=== PATIENT | female | born 1940 | race Caucasian/White ===

== ENCOUNTER 2017-08-30 18:24 | Emergency (ER) | payer MEDICARE, MEDICAID ==
[2017-08-30 18:24] VITALS: BMI 31.6
[2017-08-30 18:37] VITALS: RESP 18; TEMP 97.7
--- NOTE | 2017-08-30 18:46 | ED PDOC ---
Arrival/HPI - General Chief Complaint: Headache Time Seen by Provider: 08/30/17 18:31 Historian: Patient - History of Present Illness Narrative History of Present Illness (Text): 08/30/17 18:43 A 77 year old male, whose past medical history includes hypertension and diabetes (takes tablets, not insulin; compliant with meds), presents to the emergency department complaining of right back-side head pain. Patient reports pain has occurred many times this past year. Notes pain is still that same as always and it began at approximately 11:00 today, then later again at 15:00. Notes sometimes experiences blurry vision and shortness of breath (only when ambulating up stairs). Patient denies any chest pain, ear pain/discharge, dizziness, or any other complaints. Has no history of smoking/EtOH abuse. No PMD Past Medical History - Provider Review Nursing Documentation Reviewed: Yes - Infectious Disease Hx of Infectious Diseases: None - Reproductive Menopause: Yes - Cardiac Hx Hypertension: Yes - Renal Hx Renal Disorder: No - Endocrine/Metabolic Hx Endocrine Disorders: No - Musculoskeletal/Rheumatological Hx Arthritis: Yes Other/Comment: knee pain - Genitourinary/Gynecological Hx Genitourinary Disorders: No - Psychiatric Hx Depression: No Hx Emotional Abuse: No Hx Physical Abuse: No Hx Substance Use: No - Past Surgical History Past Surgical History: No Previous - Anesthesia Hx Anesthesia: No - Suicidal Assessment Feels Threatened In Home Enviroment: No Family/Social History - Physician Review Nursing Documentation Reviewed: Yes Family/Social History: No Known Family HX Smoking Status: Unknown If Ever Smoked Hx Alcohol Use: No Hx Substance Use: No Allergies/Home Meds Allergies/Adverse Reactions: Allergies No Known Allergies Allergy (Verified 12/17/12 14:12) Home Medications: Home Meds Medication Instructions Recorded Confirmed Amlodipine Besylate [Norvasc] 10 mg PO DAILY 12/17/12 12/17/12 Aspirin [Aspir 81] 81 mg PO DAILY 12/17/12 12/17/12 Atorvastatin [Lipitor] 20 mg PO DAILY 12/17/12 12/17/12 Metoprolol Tartrate 100 mg PO DAILY 12/17/12 12/17/12 Naproxen [Naprosyn] 500 mg PO 12/17/12 12/17/12 Review of Systems - Physician Review All systems were reviewed & negative as marked: Yes - Review of Systems ENT: absent: Other (no ear pain; pain to right back-side of head) Cardiovascular: absent: Chest Pain Physical Exam Vital Signs Reviewed: Yes Vital Signs Temp Pulse Resp BP Pulse Ox 08/30/17 18:29 97.7 F 66 18 161/70 H 97 Temperature: Afebrile Blood Pressure: Hypertensive Pulse: Regular Respiratory Rate: Normal Appearance: Positive for: Well-Appearing Pain Distress: None Mental Status: Positive for: Alert and Oriented X 3 - Systems Exam Head: Present: Other (right mastoid tenderness) Respiratory/Chest: Present: Clear to Auscultation, Good Air Exchange. No: Respiratory Distress, Accessory Muscle Use Cardiovascular: Present: Regular Rate and Rhythm, Normal S1, S2. No: Murmurs Abdomen: No: Tenderness, Distention, Peritoneal Signs Upper Extremity: Present: Normal Inspection. No: Cyanosis, Edema Lower Extremity: Present: Normal Inspection. No: Edema Neurological: Present: GCS=15, CN II-XII Intact, Speech Normal Skin: Present: Warm, Dry, Normal Color. No: Rashes Psychiatric: Present: Alert, Oriented x 3, Normal Insight, Normal Concentration Medical Decision Making ED Course and Treatment: 08/30/17 18:49 Impression: 77 year old female with right back-side head pain. No acute findings on physical examination except tenderness to right mastoid. Differential Diagnosis included but are not limited to: Mastoiditis Plan: -- EKG -- Brain CT -- Chest X-ray -- Labs -- Reassess and disposition Progress Notes: 08/30/2017 21:[address] FINDINGS: Brain: [id number] atrophy. No intracranial hemorrhage. No mass. Few scattered foci of decreased attenuation within periventricular/subcortical white matter. No definite edema. Ventricles: No hydrocephalus. Bones/joints: No acute fracture. Soft tissues: Unremarkable. Vasculature: Atherosclerotic disease of intracranial arteries. Sinuses: Scattered mild mucosal thickening of ethmoid sinuses. Mastoid air cells: No mastoid effusion. Orbits: Unremarkable as visualized. IMPRESSION: 1. Nonspecific white matter changes. Acute infarction may be CT occult within first 24 hours. If a focal deficit persists, consider followup CT or MRI for further evaluation. Dictator: David Bacon MD 08/30/17 21:25 Chest X-ray as interpreted by me, shows no acute disease, no infiltrates. On re-evaluation, patient feels better and is in no acute distress. I have discussed the results and plan with the patient, who expresses understanding. Patient in agreement with plan to be discharged home. Patient is stable for discharge. Patient was instructed to follow up with physician or return if symptoms worsen or new concerning symptoms arise. - Lab Interpretations Lab Results: 08/30/17 18:40 08/30/17 18:40 Lab Results 08/30/17 18:40: Sodium 140, Potassium 4.9, Chloride 109 H, Carbon Dioxide 15 L, Anion Gap 21 H, BUN 58 H, Creatinine 2.1 H, Est GFR ( Amer) 27, Est GFR ( Non-Af Amer) 23, Random Glucose 187 H, Calcium 8.9, Total Bilirubin 0.6, AST 30 , ALT 33, Alkaline Phosphatase 67, Troponin I < 0.01, Total Protein 7.5, Albumin 4.3, Globulin 3.1, Albumin/Globulin Ratio 1.4 08/30/17 18:40: PT 10.2, INR 0.90 L, APTT 27.1 08/30/17 18:40: WBC 9.6, RBC 4.90, Hgb 12.5, Hct 37.6, MCV 76.7 L, MCH 25.5, MCHC 33.2, RDW 16.8 H, Plt Count 515 H, MPV 10.2, Gran % 77.7 H, Lymph % (Auto) 17.0 L, [place] % (Auto) 3.5, Eos % (Auto) 1.4 L, Baso % (Auto) 0.4, Gran # 7.45 H , Lymph # (Auto) 1.6, [place] # (Auto) 0.3, Eos # (Auto) 0.1, Baso # (Auto) 0.04 I have reviewed the lab results: Yes - RAD Interpretation Radiology Orders: 08/30/17 18:43 CHEST PORTABLE [RAD] Stat 08/30/17 19:23 Brain [HEAD W/O CONTRAST] [CT] Stat - Medication Orders Current Medication Orders: Discontinued Medications Acetaminophen (Tylenol 325mg Tab) 650 mg PO STAT STA Stop: 08/30/17 20:18 Last Admin: 08/30/17 20:25 Dose: 650 mg Al Hydrox/Mg Hydrox/Simethicone (Maalox Plus 30 Ml) 30 ml PO STAT STA Stop: 08/30/17 19:51 Last Admin: 08/30/17 19:58 Dose: 30 ml - Scribe Statement The provider has reviewed the documentation as recorded by the Lily Fountain Provider Lily Attestation: All medical record entries made by the Teibzeynep were at my direction and personally dictated by me. I have reviewed the chart and agree that the record accurately reflects my personal performance of the history, physical exam, medical decision making, and the department course for this patient. I have also personally directed, reviewed, and agree with the discharge instructions and disposition. Disposition/Present on Arrival - Present on Arrival Any Indicators Present on Arrival: Yes History of DVT/PE: No History of Uncontrolled Diabetes: No Urinary Catheter: No History of Decub. Ulcer: No History Surgical Site Infection Following: None - Disposition Have Diagnosis and Disposition been Completed?: Yes Diagnosis: Headache Disposition: HOME/ ROUTINE Disposition Time: 21:30 Patient Plan: Discharge Patient Problems: Current Active Problems Problem Status Onset Headache Acute Condition: GOOD Discharge Instructions (ExitCare): Headache, Adult Referrals: PCP,NO [Primary Care Provider] - Follow up with primary Forms: [employer] (Chinese)
[2017-08-30 18:57] LABS: BASO # 0.04 K/mm3 (0.0-2.0); BASO % 0.4 % (0.0-3.0); EOS # 0.1 (0.0-0.7); EOS % 1.4 % (1.5-5.0); GRAN # 7.45 (1.4-6.5); GRAN % 77.7 % (50.0-68.0); HEMOGLOBIN 12.5 g/dL (12.0-16.0); LYMPH # 1.6 (1.2-3.4); MEAN CELL VOLUME 76.7 fl (80.0-105.0); MEAN CORPUSCULAR HEMOGLOBIN 25.5 pg (25.0-35.0); MEAN CORPUSCULAR HGB CONC 33.2 g/dl (31.0-37.0); MEAN PLATELET VOLUME 10.2 fl (7.0-11.0); MONO # 0.3 (0.1-0.6); MONO % 3.5 % (1.0-6.0); RBC 4.9 10^6/uL (3.5-6.1); RED CELL DISTRIBUTION WIDTH 16.8 % (11.5-14.5); WHITE BLOOD COUNT 9.6 10^3/ul (4.5-11.0)
[2017-08-30 19:04] LABS: INR 0.9 (0.93-1.08); PARTIAL THROMBOPLASTIN TIME 27.1 Seconds (25.1-36.5); PROTHROMBIN TIME 10.2 SECONDS (9.4-12.5)
[2017-08-30 19:05] LABS: ALB/GLOB RATIO 1.4 (1.1-1.8); ALBUMIN 4.3 g/dL (3.0-4.8); ALT/SGPT 33 U/L (7-56); AST/SGOT 30 U/L (14-36); BLOOD UREA NITROGEN 58 mg/dL (7-21); CALCIUM 8.9 mg/dL (8.4-10.5); GFR AFRICAN-AMERICAN 27; GFR NON-AFRICAN AMERICAN 23
[2017-08-30 19:16] LABS: TROPONIN I < 0.01 ng/mL
[2017-08-30] MEDS ORDERED: Alum-Mag Hydrox-Simethicone Susp (30 mL) PO STA (19:50)
--- NOTE | 2017-08-30 21:00 | CT ---
EXAM: CT Head Without Intravenous Contrast CLINICAL HISTORY: 77 years old, female; Pain; Headache; Additional info: R/O mastoiditis TECHNIQUE: Axial computed tomography images of the head/brain without intravenous contrast. All CT scans at this facility use one or more dose reduction techniques, viz.: automated exposure control; ma/kV adjustment per patient size (including targeted exams where dose is matched to indication; i.e. head); or iterative reconstruction technique. Coronal and sagittal reformatted images were created and reviewed. COMPARISON: No relevant prior studies available. FINDINGS: Brain: Rhiv-bk-[id number] atrophy. No intracranial hemorrhage. No mass. Few scattered foci of decreased attenuation within periventricular/subcortical white matter. No definite edema. Ventricles: No hydrocephalus. Bones/joints: No acute fracture. Soft tissues: Unremarkable. Vasculature: Atherosclerotic disease of intracranial arteries. Sinuses: Scattered mild mucosal thickening of ethmoid sinuses. Mastoid air cells: No mastoid effusion. Orbits: Unremarkable as visualized. IMPRESSION: 1. Nonspecific white matter changes. Acute infarction may be CT occult within first 24 hours. If a focal deficit persists, consider followup CT or MRI for further evaluation. 2. Incidental/non-acute findings are described above.
[2017-08-31 02:29] VITALS: BP 159/65; PULSE 62
[2017-08-31 03:09] VITALS: O2SAT 95
--- NOTE | 2017-08-31 08:41 | CARD ---
APPROVED REPORT EKG Measurement Heart [id number] <Conclusion> Sinus bradycardia Otherwise normal ECG
--- NOTE | 2017-08-31 09:09 | RAD ---
HISTORY: r/o infiltrate COMPARISON: No prior. FINDINGS: LUNGS: Minimal patchy infiltrate at the left lung base PLEURA: No significant pleural effusion identified, no pneumothorax apparent. CARDIOVASCULAR: Mild cardiomegaly OSSEOUS STRUCTURES: No significant abnormalities. VISUALIZED UPPER ABDOMEN: Normal. OTHER FINDINGS: None. IMPRESSION: Minimal patchy infiltrate at the left lung base
== END 2017-08-30 21:30 | disposition home or self-care (01) ==
LOC: ED 18:24
DX: R51 Headache (principal); E11.9 Type 2 diabetes mellitus without complications; I10 Essential (primary) hypertension

== ENCOUNTER 2018-03-31 14:51 | Observation (INO) | payer MEDICAID, MEDICARE ==
[2018-03-31 14:52] VITALS: BMI 31.6
--- NOTE | 2018-03-31 15:26 | ED PDOC ---
Arrival/HPI - General Chief Complaint: Shortness Of Breath Time Seen by Provider: 03/31/18 15:03 Historian: Patient - History of Present Illness Narrative History of Present Illness (Text): 03/31/18 15:24 A 77 year old female, whose past medical history includes CHF, presents to the emergency department complaining of shortness of breath for 2 days. Patient reports symptom worsens with ambulation. Reports diarrhea yesterday. Patient denies any fever, abdominal pain, chest pain, cough, or any other complaints at this time. Past Medical History - Provider Review Nursing Documentation Reviewed: Yes - Infectious Disease Hx of Infectious Diseases: None - Cardiac Hx Hypertension: Yes - Renal Hx Renal Disorder: No - Endocrine/Metabolic Hx Endocrine Disorders: No - Musculoskeletal/Rheumatological Hx Arthritis: Yes Other/Comment: knee pain - Genitourinary/Gynecological Hx Genitourinary Disorders: No - Psychiatric Hx Depression: No Hx Emotional Abuse: No Hx Physical Abuse: No Hx Substance Use: No - Past Surgical History Past Surgical History: No Previous - Anesthesia Hx Anesthesia: No - Suicidal Assessment Feels Threatened In Home Enviroment: No Family/Social History - Physician Review Nursing Documentation Reviewed: Yes Family/Social History: No Known Family HX Smoking Status: Unknown If Ever Smoked Hx Alcohol Use: No Hx Substance Use: No Allergies/Home Meds Allergies/Adverse Reactions: Allergies No Known Allergies Allergy (Verified 03/31/18 15:10) Home Medications: Home Meds Medication Instructions Recorded Confirmed Amlodipine Besylate [Norvasc] 10 mg PO DAILY 12/17/12 12/17/12 Aspirin [Aspir 81] 81 mg PO DAILY 12/17/12 12/17/12 Atorvastatin [Lipitor] 20 mg PO DAILY 12/17/12 12/17/12 Metoprolol Tartrate 100 mg PO DAILY 12/17/12 12/17/12 Naproxen [Naprosyn] 500 mg PO 12/17/12 12/17/12 Review of Systems - Physician Review All systems were reviewed & negative as marked: Yes - Review of Systems Constitutional: absent: Fevers Eyes: absent: Vision Changes ENT: absent: Hearing Changes Respiratory: SOB (with exertion). absent: Cough, Sputum, Wheezing Cardiovascular: absent: Chest Pain Gastrointestinal: Diarrhea (yesterday x 4, denies now). absent: Abdominal Pain, Constipation, Nausea, Vomiting Genitourinary Female: absent: Dysuria, Frequency, Hematuria Neurological: absent: Headache, Dizziness Physical Exam Vital Signs Reviewed: Yes Vital Signs Temp Pulse Resp BP Pulse Ox 03/31/18 15:07 98.0 F 42 L 18 100/59 L 99 Temperature: Afebrile Blood Pressure: Normal Pulse: Regular Respiratory Rate: Normal Appearance: Positive for: Well-Appearing, Non-Toxic, Comfortable Pain Distress: None Mental Status: Positive for: Alert and Oriented X 3 - Systems Exam Head: Present: Atraumatic, Normocephalic Pupils: Present: PERRL Extroacular Muscles: Present: EOMI Conjunctiva: Present: Normal Mouth: Present: Moist Mucous Membranes Neck: Present: Normal Range of Motion Respiratory/Chest: Present: Clear to Auscultation, Good Air Exchange Cardiovascular: Present: Regular Rate and Rhythm, Normal S1, S2. No: Murmurs Abdomen: No: Tenderness, Distention, Peritoneal Signs Back: Present: Normal Inspection Upper Extremity: Present: Normal Inspection. No: Cyanosis, Edema Lower Extremity: Present: Normal Inspection. No: Edema Neurological: Present: GCS=15, CN II-XII Intact, Speech Normal Skin: Present: Warm, Dry, Normal Color. No: Rashes Psychiatric: Present: Alert, Oriented x 3, Normal Insight, Normal Concentration Medical Decision Making ED Course and Treatment: 03/31/18 15:24 Impression: 77 year old female with shortness of breath. Plan: -- EKG -- Chest X-ray -- Labs -- Aspirin -- Reassess and disposition Progress Notes: EKG: Ordered, reviewed, and independently interpreted the EKG. Rate : 43 BPM Rhythm : Sinus bradycardia. Low voltage Interpretation : No ST-segment elevations or depressions, no T-wave inversions, normal intervals. Comparison : No previous EKG for comparison. 03/31/2018 16:11 Chest X-ray IMPRESSION: No active pulmonary disease. Dictator: Patricia Reza MD 03/31/18 17:33 Labs show worsening renal function and hyperkalemia. Treatment ordered. Shortness of breath is concerning for cardiac equivalent. Transferred to tele observation under hospitalist for further nephrology and cardiology evaluation. - RAD Interpretation Radiology Orders: 03/31/18 15:21 CHEST PORTABLE [RAD] Stat - Medication Orders Current Medication Orders: Discontinued Medications Aspirin (Aspirin Chewable) 324 mg PO STAT STA Stop: 03/31/18 15:22 - Scribe Statement The provider has reviewed the documentation as recorded by the Teibzeynep Fountain Provider Scribe Attestation: All medical record entries made by the Scribe were at my direction and personally dictated by me. I have reviewed the chart and agree that the record accurately reflects my personal performance of the history, physical exam, medical decision making, and the department course for this patient. I have also personally directed, reviewed, and agree with the discharge instructions and disposition. Disposition/Present on Arrival - Present on Arrival Any Indicators Present on Arrival: No History of DVT/PE: No History of Uncontrolled Diabetes: No Urinary Catheter: No History of Decub. Ulcer: No History Surgical Site Infection Following: None - Disposition Have Diagnosis and Disposition been Completed?: Yes Diagnosis: Hyperkalemia, Renal failure, Shortness of breath Disposition: HOSPITALIZED Disposition Time: 17:33 Patient Plan: Observation Patient Problems: Current Active Problems Problem Status Onset Hyperkalemia Acute Renal failure Acute Shortness of breath Acute Condition: FAIR
[2018-03-31 15:34] LABS: BASO # 0.02 K/mm3 (0.0-2.0); BASO % 0.2 % (0.0-3.0); EOS # 0.2 (0.0-0.7); EOS % 2.5 % (1.5-5.0); GRAN # 6.4 (1.4-6.5); GRAN % 73.9 % (50.0-68.0); LYMPH # 1.7 (1.2-3.4); LYMPH % 19.4 % (22.0-35.0); MEAN CELL VOLUME 79.5 fl (80.0-105.0); MEAN CORPUSCULAR HEMOGLOBIN 25.3 pg (25.0-35.0); MEAN CORPUSCULAR HGB CONC 31.9 g/dl (31.0-37.0); MEAN PLATELET VOLUME 10.7 fl (7.0-11.0); MONO # 0.4 (0.1-0.6); RBC 4.34 10^6/uL (3.5-6.1); RED CELL DISTRIBUTION WIDTH 17.2 % (11.5-14.5); WHITE BLOOD COUNT 8.7 10^3/uL (4.5-11.0)
[2018-03-31 15:50] LABS: B-TYPE NATRIURETIC PEPTIDE 687 pg/mL (0-450); TROPONIN I < 0.01 ng/mL
[2018-03-31 16:10] LABS: ALB/GLOB RATIO 1.1 (1.1-1.8); ALBUMIN 3.7 g/dL (3.0-4.8); ALT/SGPT 32 U/L (7-56); AST/SGOT 36 U/L (14-36); BLOOD UREA NITROGEN 54 mg/dL (7-21); CALCIUM 8.7 mg/dL (8.4-10.5); GFR NON-AFRICAN AMERICAN 17
--- NOTE | 2018-03-31 16:15 | RAD ---
Date of service: 03/31/2018 HISTORY: shortness of breath COMPARISON: 08/30/2017 FINDINGS: LUNGS: The lungs are well inflated and clear. PLEURA: No pleural effusions or pneumothorax. CARDIOVASCULAR: There is mild cardiomegaly. No aortic atherosclerotic calcification present. OSSEOUS STRUCTURES: Within normal limits for the patient's age. VISUALIZED UPPER ABDOMEN: Normal. OTHER FINDINGS: None. IMPRESSION: No active pulmonary disease.
[2018-03-31 17:03] LABS: CALCIUM 8.4 mg/dL (8.4-10.5)
[2018-03-31] MEDS ORDERED: Dextrose 50% SYRINGE Inj (50 ml) IVP STA (17:16)
[2018-03-31] MEDS ORDERED: Insulin Regular 1 UNITS/0.01 ML ML IV STA (17:17)
[2018-03-31] MEDS ORDERED: Sodium Bicarbonate (8.4%) 50 Meq Syringe IVP STA (17:17)
[2018-03-31] MEDS ORDERED: Sodium Chloride 0.9% 1,000 ML IV STA (17:59)
[2018-03-31] MEDS: Sodium Chloride 0.9% 1,000 ML IV SCH (18:41)
[2018-03-31 18:49] LABS: URINE BILIRUBIN NEGATIVE (NEGATIVE); URINE BLOOD NEGATIVE (NEGATIVE); URINE GLUCOSE (UA) NEGATIVE (NEGATIVE); URINE LEUKOCYTE ESTERASE TRACE Leu/uL (NEGATIVE); URINE PROTEIN NEGATIVE mg/dL (<30 mg/dL); URINE UROBILINOGEN 0.2 E.U./dL (<1 E.U./dL)
[2018-03-31 18:53] LABS: URINE APPEARANCE CLEAR (CLEAR); URINE COLOR YELLOW (YELLOW)
[2018-03-31] MEDS ORDERED: Sod Polystyrene Sulf 15 gm/60 ml Susp PO STA (19:01)
[2018-03-31 19:05] LABS: URINE BACTERIA MOD (NEG); URINE RBC NEGATIVE /hpf (0-2)
--- NOTE | 2018-03-31 19:25 | CP.PCM.HP ---
History of Present Illness - History of Present Illness History of Present Illness: Willem Vallejo, PGY-1, Internal Medicine History and Physical for Dr. Tellez 77 year old female with past medical history of hypertension, hyperlipidemia, and diabetes mellitus type II presents with shortness of breath and wheezing for 3 days. Patient reported that she felt like she was going to at that time but had no anxiety or palpitations. Patient also reports dry, nonproductive cough, muscle aches, but no fever. Patient reports that the shortness of breath gets exacerbated by exertion. Rest makes the shortness of breath better. Patient also reported abdominal pain and 5 loose nonbloody bowel movements yesterday. She reported right sided leg pain.Patient denies fever, headache, chest pain, nausea, vomiting, dysuria, hematuria, numbness/tingling. 12-point ROS was negative except for what was mentioned above. PMH: as mentioned above PSH: denies FMH: denies ALL: NKDA SHx: denies smoking, alcohol, or prior drug use PMD: Dr. Castro Present on Admission - Present on Admission Any Indicators Present on Admission: No Review of Systems - Constitutional Constitutional: absent: Chills, Fever - EENT Eyes: absent: Blurred Vision - Cardiovascular Cardiovascular: absent: Chest Pain - Respiratory Respiratory: Cough (dry), Dyspnea on Exertion. absent: Dyspnea - Gastrointestinal Gastrointestinal: Diarrhea. absent: Abdominal Pain, Constipation, Nausea, Vomiting - Genitourinary Genitourinary: absent: Dysuria, Hematuria - Musculoskeletal Musculoskeletal: Muscle Cramps (right leg) - Neurological Neurological: absent: Abnormal Gait, Confusion, Dizziness, Numbness Past Patient History - Infectious Disease Hx of Infectious Diseases: None - Past Social History Smoking Status: Unknown If Ever Smoked - CARDIAC Hx Hypertension: Yes - RENAL Hx Chronic Kidney Disease: No - ENDOCRINE/METABOLIC Hx Endocrine Disorders: No - MUSCULOSKELETAL/RHEUMATOLOGICAL Hx Arthritis: Yes Other/Comment: knee pain - GENITOURINARY/GYNECOLOGICAL Hx Genitourinary Disorders: No - PSYCHIATRIC Hx Depression: No Hx Emotional Abuse: No Hx Physical Abuse: No Hx Substance Use: No - ANESTHESIA Hx Anesthesia: No Meds Allergies/Adverse Reactions: Allergies Allergy/AdvReac Type Severity Reaction Status Date / Time No Known Allergies Allergy Verified 03/31/18 15:10 Physical Exam - Head Exam Head Exam: ATRAUMATIC, NORMAL INSPECTION, NORMOCEPHALIC - Eye Exam Eye Exam: EOMI Pupil Exam: PERRL - Respiratory Exam Respiratory Exam: Wheezes, NORMAL BREATHING PATTERN - Cardiovascular Exam Cardiovascular Exam: REGULAR RHYTHM - GI/Abdominal Exam GI & Abdominal Exam: Soft. absent: Distended, Tenderness - Extremities Exam Extremities exam: Positive for: full ROM - Neurological Exam Neurological exam: Alert, CN II-XII Intact, Oriented x3 Results - Vital Signs Recent Vital Signs: Last Vital Signs Temp 98.0 F 03/31/18 15:07 Pulse 53 L 03/31/18 18:13 Resp 18 03/31/18 18:13 BP 166/51 H 03/31/18 18:13 Pulse Ox 99 03/31/18 18:13 - Labs Result Diagrams: 03/31/18 15:24 03/31/18 16:20 Labs: Laboratory Results - last 24 hr 03/31/18 03/31/18 03/31/18 15:24 15:24 16:20 WBC 8.7 RBC 4.34 Hgb 11.0 L Hct 34.5 L MCV 79.5 L MCH 25.3 MCHC 31.9 RDW 17.2 H Plt Count 456 H MPV 10.7 Gran % 73.9 H Lymph % (Auto) 19.4 L [place] % (Auto) 4.0 Eos % (Auto) 2.5 Baso % (Auto) 0.2 Gran # 6.40 Lymph # (Auto) 1.7 [place] # (Auto) 0.4 Eos # (Auto) 0.2 Baso # (Auto) 0.02 Sodium 135 136 Potassium 6.2 H* D 6.0 H* Chloride 111 H 112 H Carbon Dioxide 16 L 17 L Anion Gap 14 13 BUN 54 H 56 H Creatinine 2.7 H 2.6 H Est GFR ( Amer) 21 21 Est GFR (Non-Af Amer) 17 18 Random Glucose 382 H* D 379 H* Calcium 8.7 8.4 Phosphorus 4.4 Magnesium 2.1 Total Bilirubin 0.6 AST 36 ALT 32 Alkaline Phosphatase 72 Lactate Dehydrogenase 733 H Total Creatine Kinase 74 Troponin I < 0.01 NT-Pro-B Natriuret Pep 687 H Total Protein 6.9 Albumin 3.7 Globulin 3.2 Albumin/Globulin Ratio 1.1 Urine Color Urine Appearance Urine pH Ur Specific [place] Urine Protein Urine Glucose (UA) Urine Ketones Urine Blood Urine Nitrate Urine Bilirubin Urine Urobilinogen Ur Leukocyte Esterase Urine RBC Urine WBC Ur Epithelial Cells Urine Bacteria 03/31/18 18:46 WBC RBC Hgb Hct MCV MCH MCHC RDW Plt Count MPV Gran % Lymph % (Auto) [place] % (Auto) Eos % (Auto) Baso % (Auto) Gran # Lymph # (Auto) [place] # (Auto) Eos # (Auto) Baso # (Auto) Sodium Potassium Chloride Carbon Dioxide Anion Gap BUN Creatinine Est GFR ( Amer) Est GFR (Non-Af Amer) Random Glucose Calcium Phosphorus Magnesium Total Bilirubin AST ALT Alkaline Phosphatase Lactate Dehydrogenase Total Creatine Kinase Troponin I NT-Pro-B Natriuret Pep Total Protein Albumin Globulin Albumin/Globulin Ratio Urine Color Yellow Urine Appearance Clear Urine pH 6.0 Ur Specific [place] 1.020 Urine Protein Negative Urine Glucose (UA) Negative Urine Ketones Negative Urine Blood Negative Urine Nitrate Negative Urine Bilirubin Negative Urine Urobilinogen 0.2 Ur Leukocyte Esterase Trace H Urine RBC Negative Urine WBC 5 - 10 Ur Epithelial Cells 6 - 8 Urine Bacteria Mod Assessment & Plan - Assessment and Plan (Free Text) Assessment: 77 year old female with past medical history of hypertension, hyperlipidemia, and diabetes mellitus type II presents with shortness of breath and wheezing for 3 days. Plan: Shortness of breath 2/2 to CHF exacerbation vs. COPD excerbation vs. Asthma exacerbation -Chest X ray: blunted costophrenic angles, hazy at lower lobes, pulmonary vascular congestion -Troponinx1: negative -BNP: 687 -Aspirin 324 given in ED -For possible CHF exacerbation, continued home cozaar. One dose of lasix 20 mg given -For possible asthma vs. COPD, patient started on duonebs PRN for shortness of breath BRANDT on CKD Stage IV -Creatinine on admission: 2.6 with baseline of 2.1. -Urine sodium and creatinine ordered. Urine electrolytes ordered to help identify the etiology of the BRANDT -Hyperkalemia of 6.0 likely due to BRANDT on CKD -Patient given one dose of kayexalate, insulin with glucose. Patient will now be given one dose of lasix which will also help further reduce the potassium level. -EKG: sinus bradycardia with HR: 43 Hyperglycemia due to diabetes mellitus type II -Accuchecks Q6 -HgbA1c ordered -POC glucose ranging from 379-382 -Low dose sliding scale insulin ordered History of hypertension -Resume home norvasc, cozaar. History of hyperlipidemia -Lipid panel ordered -Resume home lipitor DVT prophylaxis: lovenox GI prophylaxis: pepcid Patient plan discussed with Dr. Tellez - Date & Time Date: 03/31/18 Time: 19:39
[2018-03-31] MEDS ORDERED: Albuterol-Ipratrop 3 mg / 0.5 (3 ml) UD IH PRN (19:43)
--- NOTE | 2018-03-31 20:22 | CARD ---
APPROVED REPORT Date of service: 03/31/2018 EKG Measurement Heart [id number] <Conclusion> Marked sinus bradycardia Low voltage QRS Abnormal ECG
[2018-03-31 20:53] LABS: HDL CHOLESTEROL 40 mg/dL (29-60)
[2018-03-31 21:03] LABS: LDL CHOLESTEROL 56 mg/dL (0-129)
[2018-03-31] MEDS: Insulin Reg-LOW-Coverage SC SCH (23:52)
[2018-04-01 01:10] VITALS: O2SAT 98
[2018-04-01] MEDS: Sodium Chloride 0.9% 1,000 ML IV SCH (03:15)
[2018-04-01 07:22] LABS: BASO # 0.02 K/mm3 (0.0-2.0); BASO % 0.2 % (0.0-3.0); EOS # 0.3 (0.0-0.7); GRAN # 6.36 (1.4-6.5); GRAN % 70.9 % (50.0-68.0); HEMOGLOBIN 10.8 g/dL (12.0-16.0); LYMPH # 1.9 (1.2-3.4); LYMPH % 21.3 % (22.0-35.0); MEAN CELL VOLUME 78.9 fl (80.0-105.0); MEAN CORPUSCULAR HEMOGLOBIN 24.8 pg (25.0-35.0); MEAN CORPUSCULAR HGB CONC 31.4 g/dl (31.0-37.0); MEAN PLATELET VOLUME 10.4 fl (7.0-11.0); MONO # 0.4 (0.1-0.6); MONO % 4.6 % (1.0-6.0); RBC 4.36 10^6/uL (3.5-6.1); RED CELL DISTRIBUTION WIDTH 16.9 % (11.5-14.5)
[2018-04-01 07:38] LABS: ALB/GLOB RATIO 1.1 (1.1-1.8); ALBUMIN 3.5 g/dL (3.0-4.8); CALCIUM 8.8 mg/dL (8.4-10.5)
[2018-04-01] MEDS: Insulin Reg-LOW-Coverage SC SCH ×2 (08:44→12:28)
[2018-04-01] MEDS ORDERED: Enoxaparin 30 mg Syringe SC SCH (10:00)
[2018-04-01 13:05] VITALS: BP 128/51; RESP 19; TEMP 98.1
--- NOTE | 2018-04-01 15:14 | US ---
Date of service: 04/01/2018 PROCEDURE: Ultrasound of the Kidneys HISTORY: BRANDT COMPARISON: None available. TECHNIQUE: Sonogram of the kidneys. FINDINGS: RIGHT KIDNEY: Measures: 9.5 cm. Normal in size, contour with diffuse in echogenicity. No stone, solid mass lesion or hydronephrosis visualized. LEFT KIDNEY: Measures: 9.8 cm. Normal in size, contour with diffuse increased echogenicity. No stone, solid mass lesion or hydronephrosis visualized. OTHER FINDINGS: None. IMPRESSION: Diffuse increased echogenicity in the both kidneys most compatible with medical renal disease. No hydronephrosis or nephrolithiasis.
[2018-04-01 16:48] VITALS: PULSE 74
--- NOTE | 2018-04-01 16:53 | CARD ---
APPROVED REPORT Date of service: 04/01/2018 EXAM: Two-dimensional and M-mode echocardiogram with Doppler and color Doppler. INDICATION Congestive Heart Failure 2D DIMENSIONS Left Atrium (2D)3.4 (1.6-4.0cm)IVSd1.1 (0.7-1.1cm) LVDd4.2 (3.9-5.9cm)PWd1.3 (0.7-1.1cm) LVDs2.7 (2.5-4.0cm)FS (%) 35.5 % LVEF (%)65.3 (>50%) M-Mode DIMENSIONS Aortic Root2.50 (2.2-3.7cm)Aortic Cusp Exc.1.50 (1.5-2.0cm) Aortic Valve AoV Peak Bablpvsj148.0cm/Stephon Peak GR.15mmHg Mitral Valve MV E Eftvjkbp57.1cm/sMV A Vvlmcqzm901.0cm/sE/A ratio0.7 TDI E/Lateral E'0.0E/Medial E'0.0 Tricuspid Valve TR Peak [id number]/sRAP [id number] Peak Gr.43mmHg [id number] LEFT VENTRICLE The left ventricle is normal size. There is normal left ventricular wall thickness. The left ventricular function is normal. The left ventricular ejection fraction is within the normal range. There is normal LV segmental wall motion. Transmitral Doppler flow pattern is Grade I-abnormal relaxation pattern. RIGHT VENTRICLE The right ventricle is normal size. There is normal right ventricular wall thickness. The right ventricular systolic function is normal. ATRIA The left atrium size is normal. The right atrium size is normal. AORTIC VALVE The aortic valve is not well visualized. No aortic regurgitation is present. There is no aortic valvular stenosis. MITRAL VALVE The mitral valve is normal in structure. Mitral regurgitation is trace. There is no mitral valve stenosis. TRICUSPID VALVE There is moderate tricuspid regurgitation. There is moderate pulmonary hypertension. GREAT VESSELS The aortic root is normal in size. PERICARDIAL EFFUSION There is a trace pericardial effusion. <Conclusion> There is normal left ventricular wall thickness. The left ventricular function is normal. The left ventricular ejection fraction is within the normal range. There is normal LV segmental wall motion. Transmitral Doppler flow pattern is Grade I-abnormal relaxation pattern. There is moderate tricuspid regurgitation. There is moderate pulmonary hypertension.
--- NOTE | 2018-04-01 18:45 | CP.PCM.DIS ---
<Willem Vallejo - Last Filed: 04/01/18 18:25> Provider - Provider Date of Admission: 03/31/18 17:32 Attending physician: Mitchell Tellez MD Primary care physician: Clarissa Castro MD Time Spent in preparation of Discharge (in minutes): 60 Diagnosis - Discharge Diagnosis (1) Hyperkalemia Status: Acute (2) Renal failure Status: Acute (3) Shortness of breath Status: Acute Hospital Course - Lab Results Lab Results: Most Recent Lab Values WBC 9.0 10^3/uL (4.5-11.0) 04/01/18 07:10 RBC 4.36 10^6/uL (3.5-6.1) 04/01/18 07:10 Hgb 10.8 g/dL (12.0-16.0) L 04/01/18 07:10 Hct 34.4 % (36.0-48.0) L 04/01/18 07:10 MCV 78.9 fl (80.0-105.0) L 04/01/18 07:10 MCH 24.8 pg (25.0-35.0) L 04/01/18 07:10 MCHC 31.4 g/dl (31.0-37.0) 04/01/18 07:10 RDW 16.9 % (11.5-14.5) H 04/01/18 07:10 Plt Count 407 10^3/uL (120.0-450.0) 04/01/18 07:10 MPV 10.4 fl (7.0-11.0) 04/01/18 07:10 Gran % 70.9 % (50.0-68.0) H 04/01/18 07:10 Lymph % (Auto) 21.3 % (22.0-35.0) L 04/01/18 07:10 [place] % (Auto) 4.6 % (1.0-6.0) 04/01/18 07:10 Eos % (Auto) 3.0 % (1.5-5.0) 04/01/18 07:10 Baso % (Auto) 0.2 % (0.0-3.0) 04/01/18 07:10 Gran # 6.36 (1.4-6.5) 04/01/18 07:10 Lymph # (Auto) 1.9 (1.2-3.4) 04/01/18 07:10 [place] # (Auto) 0.4 (0.1-0.6) 04/01/18 07:10 Eos # (Auto) 0.3 (0.0-0.7) 04/01/18 07:10 Baso # (Auto) 0.02 K/mm3 (0.0-2.0) 04/01/18 07:10 Sodium 141 mmol/L (132-148) 04/01/18 07:10 Potassium 4.4 mmol/L (3.6-5.0) 04/01/18 07:10 Chloride 114 mmol/L (98-107) H 04/01/18 07:10 Carbon Dioxide 21 mmol/L (21-33) 04/01/18 07:10 Anion Gap 11 (10-20) 04/01/18 07:10 BUN 45 mg/dL (7-21) H 04/01/18 07:10 Creatinine 2.1 mg/dl (0.7-1.2) H 04/01/18 07:10 Est GFR ( Amer) 27 04/01/18 07:10 Est GFR (Non-Af Amer) 23 04/01/18 07:10 Random Glucose 130 mg/dL (70-110) H 04/01/18 07:10 Hemoglobin A1c 10.6 % (4.2-6.5) H 03/31/18 15:00 Calcium 8.8 mg/dL (8.4-10.5) 04/01/18 07:10 Phosphorus 4.7 mg/dL (2.5-4.5) H 04/01/18 07:10 Magnesium 1.9 mg/dL (1.7-2.2) 04/01/18 07:10 Total Bilirubin 0.5 mg/dL (0.2-1.3) 04/01/18 07:10 AST 32 U/L (14-36) 04/01/18 07:10 ALT 45 U/L (7-56) 04/01/18 07:10 Alkaline Phosphatase 78 U/L (38-126) 04/01/18 07:10 Lactate Dehydrogenase 733 U/L (333-699) H 12/12/18 15:24 Total Creatine Kinase 74 U/L (35-230) 18 15:24 Troponin I < 0.01 ng/mL 03/31/18 15:24 NT-Pro-B Natriuret Pep 687 pg/mL (0-450) H 18 15:24 Total Protein 6.8 g/dL (5.8-8.3) 04/01/18 07:10 Albumin 3.5 g/dL (3.0-4.8) 04/01/18 07:10 Globulin 3.2 gm/dL 04/01/18 07:10 Albumin/Globulin Ratio 1.1 (1.1-1.8) 04/01/18 07:10 Triglycerides 289 mg/dL (35-160) H 03/31/18 15:00 Cholesterol 130 mg/dL (130-200) 03/31/18 15:00 LDL Cholesterol Direct 56 mg/dL (0-129) 03/31/18 15:00 HDL Cholesterol 40 mg/dL (29-60) 03/31/18 15:00 Urine Color Yellow (YELLOW) 03/31/18 18:46 Urine Appearance Clear (CLEAR) 03/31/18 18:46 Urine pH 6.0 (4.7-8.0) 18 18:46 Ur Specific [place] 1.020 (1.005-1.035) 18 18:46 Urine Protein Negative mg/dL (<30 mg/dL) 03/31/18 18:46 Urine Glucose (UA) Negative mg/dL (NEGATIVE) 03/31/18 18:46 Urine Ketones Negative mg/dL (NEGATIVE) 03/31/18 18:46 Urine Blood Negative (NEGATIVE) 18 18:46 Urine Nitrate Negative (NEGATIVE) 18 18:46 Urine Bilirubin Negative (NEGATIVE) 18 18:46 Urine Urobilinogen 0.2 E.U./dL (<1 E.U./dL) 18 18:46 Ur Leukocyte Esterase Trace Seferino/uL (NEGATIVE) H 18 18:46 Urine RBC Negative /hpf (0-2) 03/31/18 18:46 Urine WBC 5 - 10 /hpf (0-6) 18 18:46 Ur Epithelial Cells 6 - 8 /hpf (0-5) 03/31/18 18:46 Urine Bacteria Mod (NEG) 03/31/18 18:46 Urine Osmolality 477 mosm/kg (300-1000) 03/31/18 20:51 Ur Random Creatinine 203 mg/dL 03/31/18 20:51 Ur Random Sodium 39 meq/L 03/31/18 20:51 Ur Random Potassium 70.2 meq/L 03/31/18 20:51 Ur Random Urea Nitrogn 678 mg/dL 03/31/18 20:51 B-Hydroxybutyrate 0.16 mM (0.02-0.27) 03/31/18 15:00 - Hospital Course Hospital Course: Willem Vallejo, PGY-1, Internal Medicine Discharge Summary for Dr. Michaels 77 year old female with past medical history of hypertension, hyperlipidemia, and diabets mellitus type II presented with shortness of breath and wheezing for 3 days. Patient reported that she felt like she was going to at that time but had no anxiety or palpitations. Patient also reports dry, nonproductive cough, muscle aches, but no fever. Upon admission, patient's potassium was 6.2. In the emergency department, patient was given calcium gluconate, insulin with dextrose, and sodium bicarbonate to reduce the patient's potassium. Today's potassium was 4.4. Patient initially had cramping of right lower extremity which resolved with reducing the potassium value. Patient was also given kayexalate and lasix on admission for further control of hyperkalemia. Patient's blood pressure was controlled with cozaar and norvasc. Diabetes mellitus was controlled with low sliding scale insulin. Patient initially presented with glucose of 382 which reduced to 130 today. Hemoglobin A1c was found to be 10.6. Patient was found to have worsening renal function with creatinine of 2.7 on admission, while patient's baseline is 2.1. After hydration with IV NS, patient's creatinine mildly improved to 2.1, which was baseline for the patient. Renal ultrasound was ordered to evaluate cause of renal dysfunction. Renal ultrasound showed diffuse increased echogenicity in both kidneys compatibel with medical renal disease. No hydronephrosis or nephrolithiasis was found. Urine creatinine and sodium were found to be 203 and 39 respectively. Patient's shortness of breath was found to be exacerbated by movement and denies orthopnea and paroxysmal nocturnal dyspnea. CXR showed no active pulmonary disease. EKG showed sinus bradycardia yesterday. Troponin was negative. BNP was 687. The cause of shortness of breath was likely due to asthma vs. COPD. Patient improved with PRN duonebs. PT evaluated the patient and walked the patient. Pulse ox did not drop below 92% and PT deemed the patient should be discharged home with family support. Patient was told to follow up with PCP upon discharge and make an appointment with a animal researcher at her earliest convenience. Patient was told to resume home medications, but to discontinue carvedilol due to bradycardia. Patient was told to return to the emergency department if she had any recurring or worsening symptoms. This is brief summary of the events that occurred at this hospital visit. For further details, please refer to the hospital documentation. - Date & Time of H&P Date of H&P: 03/31/18 Time of H&P: 19:16 Discharge Exam - Head Exam Head Exam: ATRAUMATIC, NORMAL INSPECTION, NORMOCEPHALIC - Eye Exam Eye Exam: EOMI Pupil Exam: PERRL - Respiratory Exam Respiratory Exam: NORMAL BREATHING PATTERN - Cardiovascular Exam Cardiovascular Exam: REGULAR RHYTHM - GI/Abdominal Exam GI & Abdominal Exam: Normal Bowel Sounds, Unremarkable - Extremities Exam Extremities exam: full ROM - Neurological Exam Neurological exam: Alert, CN II-XII Intact, Oriented x3 - Skin Skin Exam: Dry, Intact Discharge Plan - Follow Up Plan Condition: FAIR Disposition: HOME/ ROUTINE Instructions: Kidney Failure (DC), Shortness of Breath (Dyspnea), Hyperkalemia (DC) Additional Instructions: Please follow up with PCP in one week. Please make an appointment with a animal researcher at your earliest convenience for follow up regarding BRANDT on CKD. Please take all home medications as prescribed. Please return to the emergency department if you have any recurring or worsening symptoms. Referrals: Clarissa Castro MD [Primary Care Provider] - <Dino Michaels - Last Filed: 04/02/18 08:57> Provider - Provider Date of Admission: 03/31/18 17:32 Attending physician: Mitchell Tellez MD Primary care physician: Clarissa Castro MD Hospital Course - Lab Results Lab Results: Most Recent Lab Values WBC 9.0 10^3/uL (4.5-11.0) 04/01/18 07:10 RBC 4.36 10^6/uL (3.5-6.1) 04/01/18 07:10 Hgb 10.8 g/dL (12.0-16.0) L 04/01/18 07:10 Hct 34.4 % (36.0-48.0) L 04/01/18 07:10 MCV 78.9 fl (80.0-105.0) L 04/01/18 07:10 MCH 24.8 pg (25.0-35.0) L 04/01/18 07:10 MCHC 31.4 g/dl (31.0-37.0) 04/01/18 07:10 RDW 16.9 % (11.5-14.5) H 04/01/18 07:10 Plt Count 407 10^3/uL (120.0-450.0) 04/01/18 07:10 MPV 10.4 fl (7.0-11.0) 04/01/18 07:10 Gran % 70.9 % (50.0-68.0) H 04/01/18 07:10 Lymph % (Auto) 21.3 % (22.0-35.0) L 04/01/18 07:10 [place] % (Auto) 4.6 % (1.0-6.0) 04/01/18 07:10 Eos % (Auto) 3.0 % (1.5-5.0) 04/01/18 07:10 Baso % (Auto) 0.2 % (0.0-3.0) 04/01/18 07:10 Gran # 6.36 (1.4-6.5) 04/01/18 07:10 Lymph # (Auto) 1.9 (1.2-3.4) 04/01/18 07:10 [place] # (Auto) 0.4 (0.1-0.6) 04/01/18 07:10 Eos # (Auto) 0.3 (0.0-0.7) 04/01/18 07:10 Baso # (Auto) 0.02 K/mm3 (0.0-2.0) 04/01/18 07:10 Sodium 141 mmol/L (132-148) 04/01/18 07:10 Potassium 4.4 mmol/L (3.6-5.0) 04/01/18 07:10 Chloride 114 mmol/L (98-107) H 04/01/18 07:10 Carbon Dioxide 21 mmol/L (21-33) 04/01/18 07:10 Anion Gap 11 (10-20) 04/01/18 07:10 BUN 45 mg/dL (7-21) H 04/01/18 07:10 Creatinine 2.1 mg/dl (0.7-1.2) H 04/01/18 07:10 Est GFR ( Amer) 27 04/01/18 07:10 Est GFR (Non-Af Amer) 23 04/01/18 07:10 POC Glucose (mg/dL) 237 mg/dL (65-110) H 04/01/18 16:33 Random Glucose 130 mg/dL (70-110) H 04/01/18 07:10 Hemoglobin A1c 10.6 % (4.2-6.5) H 03/31/18 15:00 Calcium 8.8 mg/dL (8.4-10.5) 04/01/18 07:10 Phosphorus 4.7 mg/dL (2.5-4.5) H 04/01/18 07:10 Magnesium 1.9 mg/dL (1.7-2.2) 04/01/18 07:10 Total Bilirubin 0.5 mg/dL (0.2-1.3) 04/01/18 07:10 AST 32 U/L (14-36) 04/01/18 07:10 ALT 45 U/L (7-56) 04/01/18 07:10 Alkaline Phosphatase 78 U/L (38-126) 04/01/18 07:10 Lactate Dehydrogenase 733 U/L (333-699) H 03/31/18 15:24 Total Creatine Kinase 74 U/L (35-230) 03/31/18 15:24 Troponin I < 0.01 ng/mL 03/31/18 15:24 NT-Pro-B Natriuret Pep 687 pg/mL (0-450) H 03/31/18 15:24 Total Protein 6.8 g/dL (5.8-8.3) 04/01/18 07:10 Albumin 3.5 g/dL (3.0-4.8) 04/01/18 07:10 Globulin 3.2 gm/dL 04/01/18 07:10 Albumin/Globulin Ratio 1.1 (1.1-1.8) 04/01/18 07:10 Triglycerides 289 mg/dL (35-160) H 03/31/18 15:00 Cholesterol 130 mg/dL (130-200) 03/31/18 15:00 LDL Cholesterol Direct 56 mg/dL (0-129) 03/31/18 15:00 HDL Cholesterol 40 mg/dL (29-60) 03/31/18 15:00 Urine Color Yellow (YELLOW) 03/31/18 18:46 Urine Appearance Clear (CLEAR) 03/31/18 18:46 Urine pH 6.0 (4.7-8.0) 03/31/18 18:46 Ur Specific [place] 1.020 (1.005-1.035) 03/31/18 18:46 Urine Protein Negative mg/dL (<30 mg/dL) 03/31/18 18:46 Urine Glucose (UA) Negative mg/dL (NEGATIVE) 03/31/18 18:46 Urine Ketones Negative mg/dL (NEGATIVE) 03/31/18 18:46 Urine Blood Negative (NEGATIVE) 03/31/18 18:46 Urine Nitrate Negative (NEGATIVE) 03/31/18 18:46 Urine Bilirubin Negative (NEGATIVE) 03/31/18 18:46 Urine Urobilinogen 0.2 E.U./dL (<1 E.U./dL) 03/31/18 18:46 Ur Leukocyte Esterase Trace Seferino/uL (NEGATIVE) H 03/31/18 18:46 Urine RBC Negative /hpf (0-2) 18 18:46 Urine WBC 5 - 10 /hpf (0-6) 18 18:46 Ur Epithelial Cells 6 - 8 /hpf (0-5) 03/31/18 18:46 Urine Bacteria Mod (NEG) 03/31/18 18:46 Urine Osmolality 477 mosm/kg (300-1000) 03/31/18 20:51 Ur Random Creatinine 203 mg/dL 03/31/18 20:51 Ur Random Sodium 39 meq/L 03/31/18 20:51 Ur Random Potassium 70.2 meq/L 03/31/18 20:51 Ur Random Urea Nitrogn 678 mg/dL 03/31/18 20:51 B-Hydroxybutyrate 0.16 mM (0.02-0.27) 03/31/18 15:00 Attending/Attestation - Attestation I have personally seen and examined this patient.: Yes I have fully participated in the care of the patient.: Yes I have reviewed all pertinent clinical information, including history, physical exam and plan: Yes Notes (Text): Patient seen and examined with the residents, agree with above Clinically improved, no active complaints or symptoms offered on day of discharge Elevated blood pressure and blood sugars controlled as inpt. Patient educated on strict compliance to her medications Instructed to f/u with her PMD within 1-2 weeks for possible titration of her HTN and DM medications Noted to have a creatinine >2 with similar level back in August 2017, possibly attributed to long standing HTN & DM?? Doing better, will d/c home today. Daughter made aware plan of care over the phone. Told to return to the ER for any worsening symptoms.
== END 2018-04-01 18:06 | disposition home or self-care (01) ==
LOC: ED 14:51 → ERH 17:32 → 2RSO 04-01 00:48 → ERH 04-01 00:49 → 2RNO 04-01 01:10
PROVIDERS: ADMIT Hospitalist; ATTEND Hospitalist
DX: E87.5 Hyperkalemia (principal); N17.9 Acute kidney failure, unspecified; I13.0 Hypertensive heart and chronic kidney disease with heart failure and stage 1 through stage 4 chronic kidney disease, or unspecified chronic kidney disease; I50.9 Heart failure, unspecified; N18.4 Chronic kidney disease, stage 4 (severe); E11.22 Type 2 diabetes mellitus with diabetic chronic kidney disease; E11.65 Type 2 diabetes mellitus with hyperglycemia; Z79.84 Long term (current) use of oral hypoglycemic drugs; E78.5 Hyperlipidemia, unspecified; R06.02 Shortness of breath
CPT/HCPCS: 36415; 71045; 76770; 80053; 80061; 81001; 82009; 82436; 82550; 82570; 82948; 83036; 83615; 83735; 83880; 83935; 84100; 84132; 84300; 84484; 84540; 85025; 87086; 93005; 93306; 96361; 96372; 96374; 96375; 97116; 97161; 99285; G0378; G8978; G8979; G8980; J0610; J1650; J1940; J7030